=== PATIENT | female | born 1975 | race Caucasian/White ===

== ENCOUNTER 2025-03-30 17:41 | Emergency (ER) | payer OTHER, SELFPAY ==
[2025-03-30 17:44] VITALS: BP 180/120; PULSE 125; RESP 24; TEMP 36.3; O2SAT 98; BMI 31.2
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
[2025-03-30 17:48] VITALS: BP 140/103
--- OUTSIDE RECORDS SUMMARY | 2025-03-30 18:01 | XMS_ITS | Clinical Summary ---
Author Organization [employer] [facility] Address [address] [place] [id number] Care Team Providers Care Trim Setter Name Role Phone Pcp, No Primary Care Provider Unavailabl e Allergies No known active allergies Medications multivitamin (MVI) tablet Take 1 tablet by mouth once daily. 0 05/11/2018 Active cholecalciferol , Vitamin D3, (Vitamin D-3) 5,000 unit tab tablet Take 1 Tablet (5,000 units) by mouth once daily. 0 07/15/2022 Active nystatin 100,000 unit/mL suspensionIndic ations:Oral thrush Swish and swallow 5 mL (500,000 units) by mouth four times daily. 473 mL 11/07/2024 Active L-LYSINE MISC As directed. Act verenice hydrOXYzine HCL (ATARAX) 25 mg tabletIndicatio ns:Panic attacks Take 1 Tablet (25 mg) by mouth every 6 hours if needed for Itching. 90 Tablet 1 01/23/2025 Active Active Problems Problem Noted Date Diagnosed Date Pap smear for cervical cancer screening 10/21/19 23 Overview (11/28/2022): 10/2022 NIL/HPV negative Plan: Pap/HPV due in 5 years Weight gain 01/02/2018 Fatigue 01/02/2018 Arthralgia 01/02/2018 Stress 01/02/2018 Encounters Date Type Department Care Team Description 01/23/2025 1:45 PM CDT Office Visit [facility] [address] [address] [place], [place] [id number] Marie Ramirez, COMPUTER OPERATIONS MANAGER Physical (fasting); Anxiety 01/23/2025 Travel from Last 3 Months Immunizations Immunization Administration Dates Next Due Tdap 07/15/2022 Family History Medical History Relation Name Comments Dementia Father Cancer-pancreatic Maternal Grandfather Heart failure Mother Other Mother sepsis Stroke Mother Anesthesia Malignant Hyperthermia No Family History Relation Name Status Comments Brother 1 Alive Brother 2 Alive Brother 3 Alive Father Alive Maternal Grandfather Maternal Grandmother Mother Paternal Grandfather Paternal Grandmother Social History Tobacco Use Types Packs/Day Years Used Date Smoking Tobacco: Never Passive Smoke Exposure: Never Smokeless Tobacco: Never Tobacco Cessation:Counseling Given: Not Answered Alcohol Use Standard Drinks/Week Comments Yes 20 (1 standard drink = 0.6 oz pu re alcohol) PHQ-2 Answer Date Recorded PHQ-2 TOTAL SCORE 4 01/23/2025 Social Connections Answer Date Recorded Do you often feel lonely or isolated from those around you? 0 10/02/2024 Alcohol Use Answer Date Recorded How often do you have a drink containing alcohol ? 4 05/25/2022 How many drinks containing a lcohol do you have on a typical day when you are drinking? 0 05/25/2022 How often do you have five or more drinks on one occasion? 0 05/25/2022 Financial Resource Strain Answer Date R ecorded Difficulty of Paying Living Expenses 3 10/02/2024 Difficulty of Paying Living Expenses Not on file 10/02/2024 Food Insecurity Answer Date Recorded Do you worry your food will run out before you are able to buy more? 1 10/02/2024 Transportation Needs Answer Date Record ed Does lack of transportation keep you from medica l appointments? 1 10/02/2024 Does lack of transportation keep you from work, meetings or getting things that you need? 1 10/02/2024 Housing Stability Answer Date Recorded What is your housing situation today? 1 10/02/2024 Utilities Answer Date Recorded Do you have trouble paying f or utilities (for example, heat, electricity, water, phone)? 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 Gender Identity Not on file Sexual Orientation Not on file Obstetrics History Last Filed Vital Signs Vital Sign Reading Time Taken Comments Blood Pressure 148/100 01/23/2025 2:05 PM CDT Pulse 96 01/23/2025 2:05 PM CDT Temperature 37.2 C (98.9 F) 11/07/2024 3:32 PM CDT Respiratory Rate 15 10/21/2022 10:27 AM CDT Oxygen Saturation 94% 11/07/2024 3:32 PM CDT Inhaled Oxygen Concentration - - Weight 73.9 kg (163 lb) 01/23/2025 1:44 PM CDT Height 151.1 cm (4' 11.5) 01/23/2025 1:44 PM CD T Body Mass Index 32.37 01/23/2025 1:44 PM CDT Plan of Treatment Health Maintenance Due Date Last Done Comments Hepatitis B series for 19+ ( 1 of 3 - 19+ 3-dose series) 1994 Colonoscopy through age 75 01/25/2020 Mammogram for age 45-75 01/25/2020 Influenza Vaccine (#1) 2025 Pneumococcal series for age 50+ (1 of 1 - PCV) 2025 Zoster (shingles) series for age 50+ (1 of 2) 2025 BMI (ht and wt on same day) for age 18+ 01/23/2026 01/23/2025, 11/07/2024, 10/21/2022, Additional history exists Depression screening for age 12+ 01/23/2026 01/23/2025, 12/04/2024, 10/21/2022, Additional history exists Pap test for age 21-65 10/22/2027 10/21/2022, 2022 Lipids for age 45-75 01/23/2030 01/23/2025, 10/21/2022, 01/09/2018 Tetanus booster 07/15/2032 07/15/2022 RSV vaccine for adults or (1 - 1-dose 75+ series) 2050 HIV for age 15-65 Completed 10/21/2022 Hepatitis C screening for ag e 18-79 Completed 10/21/2022 Procedures Procedure Name Priority Date/Time Associated Diagnosis Comments CBC WITH AUTO DIFFERENTIAL Routine 01/23/2025 2:18 PM CDT Screening for deficiency anemia CBC WITH AUTO DIFFERENTIAL Routine 01/23/2025 2:18 PM CDT Screening for deficiency anemia HEMOGLOBIN A1C Routine 01/23/2025 2:18 PM CDT Diabetes mellitus screening TSH WITH REFLEX Routine 01/23/2025 2:18 PM CDT Thyroid disorder screen LIPID PANEL W REFLEX MEASURED LDL Routine 01/23/2025 2:18 PM CDT Lipid screening LC HIV-1/O/2, 4TH GENERATION Routine 10/21/2022 11:14 AM CDT Screening for HIV without presence of risk factors LC HCV ANTIBODY RFX TO QUANT PCR Routine 10/21/2022 11:14 AM CDT Encounter for HCV screening test for low risk patient CHAIR AND COUCH MAKER THIN PREP PAP SCREEN IMAGED Routine 10/21/2022 10:55 AM CDT Pap smear for cervical cancer screening from Last 3 Months or Most Recently Relevant to Health Maintenance Results * (ABNORMAL) CBC WITH AUTO DIFFERENTIAL (01/23/2025 2:18 PM CDT) WHITE BLOOD CELL COUNT 7.8 3.8 - 10.8 Thousand/ uL 2025 4:03 AM CDT [facility] RED BLOOD CELL COUNT 4.41 3.80 - 5.10 Million/u L 2025 4:03 AM CDT [facility] HEMOGLOBIN 15.2 11.7 - 15.5 g/dL 2025 4:03 AM CDT [facility] HEMATOCRIT 44.9 35.0 - 45.0 % 2025 4:03 AM CDT [facility] MCV 101.8(H) 80.0 - 100.0 fL 2025 4:03 AM CDT [facility] MCH 34.5(H) 27.0 - 33.0 pg 2025 4:03 AM CDT [facility] MCHC 33.9 32.0 - 36.0 g/dL 2025 4:03 AM CDT [facility] Comment: For adults, a slight decrease in the calculated MCHC value (in the range of 30 to 32 g/dL) is most likely not clinically significant; however, it should be interpreted with caution in correlation with other red cell parameters and the patient's clinical condition. RDW 12.9 11.0 - 15.0 % 2025 4:03 AM CDT [facility] PLATELET COUNT 220 140 - 400 Thousand/ uL 2025 4:03 AM CDT [facility] MPV 9.3 7.5 - 12.5 fL 2025 4:03 AM CDT [facility] NEUTROPHILS 73.1 % 2025 4:03 AM CDT [facility] LYMPHOCYTES 18.8 % 2025 4:03 AM CDT [facility] MONOCYTES 7.5 % 2025 4:03 AM CDT [facility] EOSINOPHILS 0.1 % 2025 4:03 AM CDT [facility] BASOPHILS 0.5 % 2025 4:03 AM CDT [facility] ABSOLUTE NEUTROPHILS 5702 1500 - 7800 cells/uL 2025 4:03 AM CDT [facility] ABSOLUTE LYMPHOCYTES 1466 850 - 3900 cells/uL 2025 4:03 AM CDT [facility] ABSOLUTE MONOCYTES 585 200 - 950 cells/uL 2025 4:03 AM CDT [facility] ABSOLUTE EOSINOPHILS 8(L) 15 - 500 cells/uL 2025 4:03 AM CDT [facility] ABSOLUTE BASOPHILS 39 0 - 200 cells/uL 2025 4:03 AM CDT [facility] Blood BLOOD SPECIMEN / Unknown [facility] / Unknown 01/23/2025 2:18 PM CDT 01/23/2025 2:18 PM CDT us Marie Ramirez NP HEMATOLOGY Final Res ult [facility] [address] [place] [address], * HEMOGLOBIN A1C (01/23/2025 2:18 PM CDT) HEMOGLOBIN A1C 5.4 <5.7 % 2025 4:56 AM CDT [facility] Comment: For the purpose of screening for the presence of diabetes: <5.7% Consistent with the absence of diabetes 5.7-6.4% Consistent with increased risk for diabetes (prediabetes) > or =6.5% Consistent with diabetes This assay result is consistent with a decreased risk of diabetes. Currently, no consensus exists regarding use of hemoglobin A1c for diagnosis of diabetes in children. According to [place] Diabetes Association (ADA) guidelines, hemoglobin A1c <7.0% represents optimal control in non- diabetic patients. Different metrics may apply to specific patient populations. Standards of Medical Care in Diabetes(ADA). Blood BLOOD SPECIMEN / Unknown [facility] / Unknown 01/23/2025 2:18 PM CDT 01/23/2025 2:18 PM CDT us Marie Ramirez NP CHEMISTRY Final Res ult Performing Organization Address [facility] de Phone Number [facility] [address] [address], [place] [phone] * TSH WITH REFLEX (01/23/2025 2:18 PM CDT) TSH W/REFLEX TO FT4 2.23 mIU/L 2025 5:06 AM CDT [facility] Comment: Reference Range > or = 20 Years 0.40-4.50 Ranges First trimester 0.26-2.66 Second trimester 0.55-2.73 Third trimester 0.43-2.91 Blood BLOOD SPECIMEN / Unknown [facility] / Unknown 01/23/2025 2:18 PM CDT 01/23/2025 2:18 PM CDT Marie Ramirez NP CHEMISTRY Final Res ult Performing Organization Address [facility] Co de Phone Number [facility] [address] [address], [place] [phone] * (ABNORMAL) LIPID PANEL W REFLEX MEASURED LDL (01/23/2025 2:18 PM CDT) CHOLESTEROL, TOTAL 315(H) <200 mg/dL 2025 4:32 AM CDT [facility] TRIGLYCERIDES 122 <150 mg/dL 2025 4:32 AM CDT [facility] HDL CHOLESTEROL 124 > OR = 50 mg/dL 2025 4:32 AM CDT [facility] NON HDL CHOLESTEROL 191(H) <130 mg/dL (calc) 2025 4:32 AM CDT [facility] Comment: For patients with diabetes plus 1 major ASCVD risk factor, treating to a non-HDL-C goal of <100 mg/dL (LDL-C of <70 mg/dL) is considered a therapeutic option. CHOL/HDLC RATIO 2.5 <5.0 (calc) 2025 4:32 AM CDT [facility] LDL-CHOLESTEROL 166(H) mg/dL (calc) 2025 4:32 AM CDT [facility] Comment: Reference range: <100 Desirable range <100 mg/dL for primary prevention; <70 mg/dL for patients with CHD or diabetic patients with > or = 2 CHD risk factors. LDL-C is now calculated using the Kalpesh-Beau calculation, which is a validated novel method providing better accuracy than the Friedewald equation in the estimation of LDL-C. Kalpesh SS et al. LAST. 2013;310(19): 4002-6385 (http://education.WatchFrog.Zanbato/faq/IBV864) Blood BLOOD SPECIMEN / Unknown [facility] / Unknown 01/23/2025 2:18 PM CDT 01/23/2025 2:18 PM CDT us Marie Ramirez NP CHEMISTRY Final Res ult [facility] [place] [id number] [place] [address], * LC HCV ANTIBODY RFX TO QUANT PCR (10/21/2022 11:14 AM CDT) HCV Ab Non Reactive Non Reactive 10/25/2022 11:06 PM CDT [facility] Blood BLOOD SPECIMEN / Unknown Venipuncture / Unknown 10/21/2022 11:14 AM CDT 10/21/2022 11:14 AM CDT Narrative [facility] ([facility]) - 10/25/2022 11:06 PM CDT Performed at: [address] [place] [id number] Alberene Stone Setter: Howard Camejo MD, Phone: [phone] Marie Ramirez NP LABORATORY Final Res ult Performing Organization Address [facility]/ZIP Co de Phone Number [facility] ([facility]) [address] [place] [address], * LC HIV-1/O/2, 4TH GENERATION (10/21/2022 11:14 AM CDT) HIV Scr 4th Gen Non Reactive Non Reactive 10/25/2022 1:09 PM CDT [facility] ([facility]) Comment: HIV Negative HIV-1/HIV-2 antibodies and HIV-1 p24 antigen were NOT detected. There is no laboratory evidence of HIV infection. Blood BLOOD SPECIMEN / Unknown Venipuncture / Unknown 10/21/2022 11:14 AM CDT 10/21/2022 11:14 AM CDT [facility] ([facility]) - 10/25/2022 1:09 PM CDT Performed at: [address] [place] [address] [id number] Alberene Stone Setter: Howard Camejo MD, Phone: [phone] Marie Ramirez NP LABORATORY Final Res ult Performing Organization Address City/[facility]/ZIP Co de Phone Number [facility] ([facility]) [address] [place] [address], [place] * CHAIR AND COUCH MAKER THIN PREP PAP SCREEN IMAGED (10/21/2022 10:55 AM CDT) Case Report Gynecologic Cytology Report Case: [id number] Authorizing Provider: Marie Ramirez NP Collected: 10/21/2022 1055 Ordering Location: [facility] Received: 10/21/2022 1122 Clinic First Screen: Amanda Bianchi Specimen: CHAIR AND COUCH MAKER ThinPrep Vial Screening, Cervical/Vaginal 11/25/2022 8:40 AM CDT [facility] INTERPRETATION/ RESULT NEGATIVE FOR INTRAEPITHELIAL LESION OR MALIGNANCY (NIL) (none) 11/25/2022 8:40 AM CDT [facility] [employer] ENTRAL LABORATORY at 0840 CDT SPECIMEN ADEQUACY Satisfactory for evaluation No endocervical component seen 11/25/2022 8:40 AM CDT [facility] HPV REQUEST HPV and PAP 11/25/2022 8:40 AM CDT [facility] Date of LMP 10/07/2022 11/25/2022 8:40 AM CDT [facility] Last Pap Date 2017 11/25/2022 8:40 AM CDT [facility] Last Pap Result First Pap/Unknown 8:40 AM CDT [facility] [employer] ENTRAL LABORATORY Abnormal Pap or [place] Bx in last 5 years No 11/25/2022 8:40 AM CDT [facility] [employer] ENTRAL LABORATORY Menstrual Status Regular Periods 11/25/2022 8:40 AM CDT [facility] [employer] ENTRAL LABORATORY [place] Bx Done Today No 11/25/2022 8:40 AM CDT [facility] [email or web address] [facility] ENTRAL LABORATORY Additional Information None given 11/25/2022 8:40 AM CDT [facility] [employer] ENTRAL LABORATORY Comment: Cytology is screened at [facility], [facility] - [address], [place] [address] and [facility] - [address], [place] [address] and [facility] - [address] [place] [address] Interpreted at [facility] - [facility] [place] [address] Automated Review Successful 11/25/2022 8:40 AM CDT [facility] [email or web address] LABORATORY- ENTRAL LABORATORY Comment:Specimen processed s uccessfully by automated line assembly utility worker device, [employer] System, [employer] ANCILLARY TESTING CHAIR AND COUCH MAKER HPV Ordered, Please see separate report 11/25/2022 8:40 AM CDT [facility] LAB[facility]- ENTRAL LABORATORY Note The pap test is a screening technique, not a diagnostic procedure. It is used primarily to screen for squamous cancers and precursor lesions. Published studies have shown that it is subject to both false negative and false positive results. The pap test should not be used as the sole means to diagnose or exclude pre-malignant and malignant lesions. 11/25/2022 8:40 AM CDT [facility] LABORATORY- ENTRAL LABORATORY Other (Cervical/Vagina l) Non-Blood / Unknown 10/21/2022 10:55 AM CDT 10/21/2022 11:22 AM CDT Marie Ramirez NP PATHOLOGY/CYTOLOGY Final Result [facility] [email or web address] [facility] [address] [place] [address], [place] from Last 3 Months or Most Recently Relevant to Health Maintenance Insurance [employer] Care Teams Trim Setter Relationship Specialty Start Date End Date Pcp, No . PCP - General 05/03/22
[2025-03-30 18:20] VITALS: PULSE 98; RESP 20; O2SAT 98
== END 2025-03-30 20:18 ==
PROVIDERS: Emergency Provider Emergency Medicine
DX: F41.9 Anxiety disorder, unspecified (principal); F10.120 Alcohol abuse with intoxication, uncomplicated
CPT/HCPCS: 99282; 99283; A9270